=== PATIENT | female | born 1975 | race Caucasian/White ===

== ENCOUNTER 2016-12-04 19:02 | Emergency (ER) | payer MEDICAID ==
[~2016-12-04 19:02] MED LIST: BEN20 PO; BENADRYL ALLERG25 M1 PO; BENTYL10 MG PO; COLACE100 MG PO; DIPHENHYDRAMINE50 MG PO; ELAVIL25 MG PO; FLA250 PO; HYDROCODONE/ACE1 TA6 PO; LOMOTIL1 TAB PO; METP PO; MOTRIN800 MG PO; NORCO1 TA1 PO; NORCO1 TA2 PO; OMEPRAZOLE40 M1 PO; PAXIL10 MG PO; PROAIR HFA0.09 MG/A1 IH; PROMETHAZINE HY25 M1 PO; PROMETHAZINE12.5 M4 PO; PROVENTIL0.09 MG/A1 INH; SINGULAIR4 MG PO; TRAMADOL HCL50 MG PO; ULTRAM50 MG PO; URIBEL1 CAP PO; ZOFRAN8 MG PO
[2016-12-04 22:05] VITALS: BP 137/82
== END 2016-12-04 22:05 | disposition home or self-care (01) ==
LOC: ED 19:02
DX: M54.2 Cervicalgia (principal); M54.6 Pain in thoracic spine; F41.9 Anxiety disorder, unspecified; F99 Mental disorder, not otherwise specified; J45.909 Unspecified asthma, uncomplicated; Z88.0 Allergy status to penicillin; Z88.8 Allergy status to other drugs, medicaments and biological substances
CPT/HCPCS: J1170; Q0162

== ENCOUNTER 2017-03-19 21:09 | Emergency (ER) | payer MEDICAID ==
[2017-03-20 00:19] LABS: CALCIUM 8.9 mg/dL (8.5-10.1); CARBON DIOXIDE 28.1 mmol/L (21-32); CHLORIDE SERUM 102 mmol/L (98-107); CREATININE SERUM 0.7 mg/dL (0.6-1.0); GFR1 > 60 mL/min; GLUCOSE SERUM 99 mg/dL (74-106); POTASSIUM SERUM 3.4 mmol/L (3.5-5.1); SODIUM SERUM 134 mmol/L (136-145)
[2017-03-20 00:24] LABS: ALBUMIN 3.7 g/dL (3.4-5.0); ALKALINE PHOSPHATASE 73 U/L (46-116); ALT/SGPT 23 U/L (14-59); AST/SGOT 18 U/L (15-37); BILIRUBIN TOTAL 0.3 mg/dL (0.20-1.00); LIPASE 86 IU/L (73-393)
[2017-03-20 00:27] LABS: BASOPHIL % 0.3 % (0-2); PLATELET COUNT 341 x10^3mcL (130-400); RED CELL DISTRIBUTION WIDTH 13.9 % (11.5-14.5)
[2017-03-20 00:30] LABS: TOTAL PROTEIN, SERUM 8.4 g/dL (6.4-8.2)
[2017-03-20 01:39] VITALS: BP 90/61
== END 2017-03-20 01:39 | disposition home or self-care (01) ==
LOC: ED 21:09
PROVIDERS: Emergency Medicine
DX: R11.2 Nausea with vomiting, unspecified (principal); R19.7 Diarrhea, unspecified; J45.909 Unspecified asthma, uncomplicated; Z90.49 Acquired absence of other specified parts of digestive tract; Z88.0 Allergy status to penicillin
CPT/HCPCS: J2270; J2405; J7030

== ENCOUNTER 2017-06-05 23:33 | Emergency (ER) | payer MEDICAID ==
[2017-06-06 01:07] LABS: CALCIUM 8.7 mg/dL (8.5-10.1); CARBON DIOXIDE 28.4 mmol/L (21-32); CHLORIDE SERUM 103 mmol/L (98-107); CREATININE SERUM 0.7 mg/dL (0.6-1.0); GFR1 > 60 mL/min; GLUCOSE SERUM 105 mg/dL (74-106); POTASSIUM SERUM 3.5 mmol/L (3.5-5.1); SODIUM SERUM 138 mmol/L (136-145)
[2017-06-06 01:12] LABS: UA SPECIFIC GRAVITY 1.025 (1.005-1.035); microscopic required? YES; urine erythrocyte 3+ (NEGATIVE)
[2017-06-06 01:12] LABS: ALBUMIN 3.5 g/dL (3.4-5.0); ALKALINE PHOSPHATASE 85 U/L (46-116); ALT/SGPT 23 U/L (14-59); AST/SGOT 13 U/L (15-37); BILIRUBIN TOTAL 0.2 mg/dL (0.20-1.00); TOTAL PROTEIN, SERUM 8.1 g/dL (6.4-8.2)
[2017-06-06 01:13] LABS: BASOPHIL % 0.2 % (0-2); PLATELET COUNT 319 x10^3mcL (130-400); RED CELL DISTRIBUTION WIDTH 14.3 % (11.5-14.5)
[2017-06-06 03:38] VITALS: BP 114/75
== END 2017-06-06 03:38 | disposition home or self-care (01) ==
LOC: ED 23:33
PROVIDERS: Emergency Medicine
DX: O03.9 Complete or unspecified spontaneous abortion without complication (principal); N94.6 Dysmenorrhea, unspecified; Z88.0 Allergy status to penicillin; Z88.8 Allergy status to other drugs, medicaments and biological substances
CPT/HCPCS: J1885; J2270; J2405

== ENCOUNTER 2017-08-11 22:27 | Inpatient (IN) | payer MEDICAID ==
[~2017-08-11] VITALS: Ht 154.9 cm; Wt 79.5 kg
[2017-08-11 22:48] VITALS: Ht 154.9 cm; Wt 79.5 kg
[2017-08-11 23:55] LABS: BASOPHIL % 0.2 % (0-2); PLATELET COUNT 329 x10^3mcL (130-400); RED CELL DISTRIBUTION WIDTH 13.8 % (11.5-14.5)
[2017-08-12] VITALS (8 sets, daily range): BP systolic 98–144; BP diastolic 59–82
[2017-08-12 00:04] LABS: CALCIUM 8.4 mg/dL (8.5-10.1); CARBON DIOXIDE 30.1 mmol/L (21-32); CHLORIDE SERUM 102 mmol/L (98-107); CREATININE SERUM 0.6 mg/dL (0.6-1.0); GFR1 > 60 mL/min; GLUCOSE SERUM 115 mg/dL (74-106); POTASSIUM SERUM 3.8 mmol/L (3.5-5.1); SODIUM SERUM 139 mmol/L (136-145)
[2017-08-12 00:07] LABS: ALBUMIN 3.6 g/dL (3.4-5.0); ALKALINE PHOSPHATASE 88 U/L (46-116); ALT/SGPT 23 U/L (14-59); AST/SGOT 16 U/L (15-37); BILIRUBIN TOTAL 0.1 mg/dL (0.20-1.00); LIPASE 89 IU/L (73-393); TOTAL PROTEIN, SERUM 7.9 g/dL (6.4-8.2)
[2017-08-12] MEDS ORDERED: PROAIR HFA8.5 GM IH (02:33)
[2017-08-12] MEDS ORDERED: BENTYL20 MG PO (02:34)
[2017-08-12] MEDS ORDERED: OMEPRAZOLE40 M1 PO (02:34)
[2017-08-12] MEDS ORDERED: ZOFRAN8 MG PO (02:34)
[2017-08-12] MEDS ORDERED: BENADRYL ALLERG25 M1 PO (02:35)
[2017-08-12] MEDS ORDERED: ULTRAM50 MG PO (02:35)
[2017-08-12 03:48] LABS: RED BLOOD CELLS 3.77 M/mm3 (4.10-5.10)
[2017-08-12 04:11] LABS: FREE T4 0.93 ng/dL (0.76-1.46); FREE THYROXINE INDEX 2.6 ug/dL (1.4-4.5); T4(THYROXINE) 8.1 ug/dL (4.7-13.3)
[2017-08-12 04:12] LABS: T3 TOTAL 1.13 ng/mL
[2017-08-12 04:37] LABS: TOTAL IRON BINDING CAPACITY 321 ug/dL (250-450)
[2017-08-12 04:39] LABS: CHOLESTEROL/HDL RATIO 3.3; IRON 24 ug/dL (50-170); PHOSPHOROUS 2.7 mg/dL (2.5-4.9)
[2017-08-12 14:17] LABS: urine erythrocyte NEGATIVE (NEGATIVE)
[2017-08-12 14:27] LABS: AMPHETAMINE QUAL UR NONE DETECTED (NEG <=1000)
[2017-08-12 14:44] LABS: microscopic required? YES
[2017-08-13 05:01] VITALS: BP 95/62
[2017-08-13 06:25] LABS: BASOPHIL % 0.4 % (0-2); PLATELET COUNT 271 x10^3mcL (130-400); RED CELL DISTRIBUTION WIDTH 14.1 % (11.5-14.5)
[2017-08-13 06:36] LABS: CALCIUM 7.8 mg/dL (8.5-10.1); CARBON DIOXIDE 26.7 mmol/L (21-32); CHLORIDE SERUM 106 mmol/L (98-107); CREATININE SERUM 0.9 mg/dL (0.6-1.0); GFR1 > 60 mL/min; GLUCOSE SERUM 80 mg/dL (74-106); MAGNESIUM 1.8 mg/dL (1.8-2.4); PHOSPHOROUS 3.5 mg/dL (2.5-4.9); POTASSIUM SERUM 3.4 mmol/L (3.5-5.1); SODIUM SERUM 139 mmol/L (136-145)
[2017-08-13 08:49] VITALS: BP 104/63
[2017-08-13 13:30] VITALS: BP 115/81
[2017-08-13 17:59] VITALS: BP 141/78
[2017-08-13 22:09] VITALS: BP 121/76
[2017-08-14 06:37] LABS: CALCIUM 8.6 mg/dL (8.5-10.1); CARBON DIOXIDE 31.6 mmol/L (21-32); CHLORIDE SERUM 102 mmol/L (98-107); CREATININE SERUM 0.7 mg/dL (0.6-1.0); GFR1 > 60 mL/min; GLUCOSE SERUM 85 mg/dL (74-106); SODIUM SERUM 138 mmol/L (136-145)
[2017-08-14 06:51] LABS: BASOPHIL % 0.3 % (0-2); PLATELET COUNT 314 x10^3mcL (130-400); RED CELL DISTRIBUTION WIDTH 13.5 % (11.5-14.5)
[2017-08-14 07:21] VITALS: BP 108/62
[2017-08-14] MEDS ORDERED: PHE25 PO ×2 (12:00→18:33)
[2017-08-14] MEDS ORDERED: VITC PO ×2 (12:03→18:33)
[2017-08-14] MEDS ORDERED: FERG PO ×2 (12:03→18:33)
[2017-08-14] MEDS ORDERED: NORCO1 TA2 PO (16:25)
[2017-08-14] MEDS ORDERED: METP PO ×2 (16:28→18:33)
[2017-08-14] MEDS ORDERED: SIMETHICONE80 MG CH ×2 (16:28→18:33)
[2017-08-14] MEDS ORDERED: FLA500 PO ×2 (16:30→18:33)
[2017-08-14] MEDS ORDERED: BIA500 PO ×2 (16:30→18:33)
[2017-08-14 17:31] VITALS: BP 125/78
[2017-08-14 17:54] VITALS: BP 125/78
[2017-08-14] MEDS ORDERED: PROAIR HFA8.5 GM IH (18:33)
== END 2017-08-14 19:32 | disposition home or self-care (01) | DRG 241 ==
LOC: ED 22:27 → DU 08-12 02:50 → MU 08-12 02:50 → DU 08-12 03:50 → MU 08-13 09:24
PROVIDERS: Emergency Medicine; Family Medicine; Internal Medicine Gastroenterology
PROC: 0DB98ZX Excision of Duodenum, Via Natural or Artificial Opening Endoscopic, Diagnostic (ICD-10-PCS; principal; 2017-08-14 13:30)
PROC: 0DB68ZX Excision of Stomach, Via Natural or Artificial Opening Endoscopic, Diagnostic (ICD-10-PCS; 2017-08-14 13:30)
PROC: 0DJD8ZZ Inspection of Lower Intestinal Tract, Via Natural or Artificial Opening Endoscopic (ICD-10-PCS; 2017-08-14 13:30)
DX: K25.9 Gastric ulcer, unspecified as acute or chronic, without hemorrhage or perforation (principal); F32.9 Major depressive disorder, single episode, unspecified; B96.81 Helicobacter pylori [H. pylori] as the cause of diseases classified elsewhere; K21.9 Gastro-esophageal reflux disease without esophagitis; K64.8 Other hemorrhoids; E87.6 Hypokalemia; F41.9 Anxiety disorder, unspecified; J45.909 Unspecified asthma, uncomplicated; D64.9 Anemia, unspecified; E66.9 Obesity, unspecified; Z68.33 Body mass index [BMI] 33.0-33.9, adult
CPT/HCPCS: 43235; 45378; 83880; 84439; 87046; 87046-59; 88344; 90658; 94150; J1170; J1200; J1610; J1885; J2250; J2270; J2310; J2405; J3010; J3480; J3490; J7030; J7620; Q0092; Q0163; Q0169

== ENCOUNTER 2017-10-08 20:33 | Emergency (ER) | payer MEDICAID ==
[~2017-10-08] VITALS: Ht 165.1 cm; Wt 84.4 kg
[~2017-10-08 20:33] MED LIST changes: +BENTYL20 MG PO; +BIA500 PO; +FERG PO; +FLA500 PO; +PHE25 PO; +PROAIR HFA8.5 GM IH; +SIMETHICONE80 MG CH; +VITC PO
[2017-10-08 20:43] VITALS: BP 139/74; Ht 165.1 cm; Wt 84.4 kg
[2017-10-08 21:18] LABS: microscopic required? YES; urine erythrocyte 1+ (NEGATIVE)
== END 2017-10-08 22:15 | disposition home or self-care (01) ==
LOC: ED 20:33
PROVIDERS: Emergency Medicine
DX: N39.0 Urinary tract infection, site not specified (principal); J45.909 Unspecified asthma, uncomplicated; K58.9 Irritable bowel syndrome, unspecified; Z90.49 Acquired absence of other specified parts of digestive tract; Z88.0 Allergy status to penicillin; Z88.8 Allergy status to other drugs, medicaments and biological substances
CPT/HCPCS: Q0162

== ENCOUNTER 2017-11-26 01:38 | Emergency (ER) | payer MEDICAID ==
[~2017-11-26] VITALS: Ht 154.9 cm; Wt 82.7 kg
[2017-11-26 01:55] VITALS: Ht 154.9 cm; Wt 82.7 kg
[2017-11-26 02:51] LABS: CARBON DIOXIDE 26.5 mmol/L (21-32); CHLORIDE SERUM 102 mmol/L (98-107); CREATININE SERUM 0.7 mg/dL (0.6-1.0); GFR1 > 60 mL/min; GLUCOSE SERUM 91 mg/dL (74-106); POTASSIUM SERUM 3.6 mmol/L (3.5-5.1); SODIUM SERUM 137 mmol/L (136-145)
[2017-11-26 02:52] LABS: BASOPHIL % 0.1 % (0-2); PLATELET COUNT 353 x10^3mcL (130-400); RED CELL DISTRIBUTION WIDTH 13.6 % (11.5-14.5)
[2017-11-26 02:57] LABS: ALBUMIN 3.7 g/dL (3.4-5.0); ALKALINE PHOSPHATASE 72 U/L (46-116); ALT/SGPT 15 U/L (14-59); AST/SGOT 15 U/L (15-37); BILIRUBIN TOTAL 0.17 mg/dL (0.20-1.00); TOTAL PROTEIN, SERUM 7.9 g/dL (6.4-8.2)
[2017-11-26 04:49] VITALS: BP 138/82
== END 2017-11-26 04:49 | disposition home or self-care (01) ==
LOC: ED 01:38
PROVIDERS: Emergency Medicine
DX: R21 Rash and other nonspecific skin eruption (principal); R51 Headache; R11.0 Nausea; J45.909 Unspecified asthma, uncomplicated; K58.9 Irritable bowel syndrome, unspecified; Z90.49 Acquired absence of other specified parts of digestive tract; Z88.0 Allergy status to penicillin; Z88.8 Allergy status to other drugs, medicaments and biological substances
CPT/HCPCS: 36415; Q0162

== ENCOUNTER 2018-02-06 07:04 | Emergency (ER) | payer MEDICAID ==
[~2018-02-06] VITALS: Ht 154.9 cm; Wt 82.5 kg
[2018-02-06 07:15] VITALS: Ht 154.9 cm; Wt 82.5 kg
[2018-02-06 07:43] LABS: BASOPHIL % 0.4 % (0-2); PLATELET COUNT 348 x10^3mcL (130-400); RED CELL DISTRIBUTION WIDTH 13.5 % (11.5-14.5)
[2018-02-06 08:44] LABS: CALCIUM 8.4 mg/dL (8.5-10.1); CARBON DIOXIDE 26.7 mmol/L (21-32); CHLORIDE SERUM 103 mmol/L (98-107); CREATININE SERUM 0.7 mg/dL (0.6-1.0); GFR1 > 60 mL/min; GLUCOSE SERUM 107 mg/dL (74-106); POTASSIUM SERUM 3.9 mmol/L (3.5-5.1); SODIUM SERUM 136 mmol/L (136-145)
[2018-02-06 08:49] LABS: ALKALINE PHOSPHATASE 86 U/L (46-116); ALT/SGPT 44 U/L (14-59); AST/SGOT 22 U/L (15-37); BILIRUBIN TOTAL 0.2 mg/dL (0.20-1.00); LIPASE 106 IU/L (73-393)
[2018-02-06 08:50] LABS: TOTAL PROTEIN, SERUM 8.4 g/dL (6.4-8.2)
[2018-02-06 10:41] VITALS: BP 122/66
== END 2018-02-06 10:41 | disposition home or self-care (01) ==
LOC: ED 07:04
PROVIDERS: Emergency Medicine
DX: R10.31 Right lower quadrant pain (principal); R51 Headache; R11.2 Nausea with vomiting, unspecified; R19.7 Diarrhea, unspecified; J45.909 Unspecified asthma, uncomplicated; Z88.0 Allergy status to penicillin; Z88.8 Allergy status to other drugs, medicaments and biological substances; Z90.49 Acquired absence of other specified parts of digestive tract
CPT/HCPCS: J1200; J1885; J2550; J3010; J7030

== ENCOUNTER 2018-02-12 13:58 | Emergency (ER) | payer MEDICAID ==
[~2018-02-12] VITALS: Ht 154.9 cm; Wt 107.5 kg
[2018-02-12 14:08] VITALS: Ht 154.9 cm; Wt 107.5 kg
[2018-02-12 16:14] LABS: BASOPHIL % 0.4 % (0-2); PLATELET COUNT 368 x10^3mcL (130-400); RED CELL DISTRIBUTION WIDTH 13.8 % (11.5-14.5)
[2018-02-12 16:55] LABS: CALCIUM 9.8 mg/dL (8.5-10.1); CARBON DIOXIDE 26.2 mmol/L (21-32); CHLORIDE SERUM 102 mmol/L (98-107); CREATININE SERUM 0.8 mg/dL (0.6-1.0); GFR1 > 60 mL/min; GLUCOSE SERUM 118 mg/dL (74-106); POTASSIUM SERUM 3.7 mmol/L (3.5-5.1); SODIUM SERUM 135 mmol/L (136-145)
[2018-02-12 17:00] LABS: ALBUMIN 4.3 g/dL (3.4-5.0); ALKALINE PHOSPHATASE 82 U/L (46-116); ALT/SGPT 41 U/L (14-59); AMYLASE 50 U/L (25-115); AST/SGOT 34 U/L (15-37); BILIRUBIN TOTAL 0.29 mg/dL (0.20-1.00); LIPASE 96 IU/L (73-393)
[2018-02-12 17:05] LABS: TOTAL PROTEIN, SERUM 9.2 g/dL (6.4-8.2)
[2018-02-12 19:15] VITALS: BP 132/71
== END 2018-02-12 19:15 | disposition home or self-care (01) ==
LOC: ED 13:58
PROVIDERS: Specialist
DX: R10.13 Epigastric pain (principal); R10.30 Lower abdominal pain, unspecified; R19.7 Diarrhea, unspecified; R11.2 Nausea with vomiting, unspecified; J45.909 Unspecified asthma, uncomplicated; Z88.0 Allergy status to penicillin; Z90.49 Acquired absence of other specified parts of digestive tract; Z88.8 Allergy status to other drugs, medicaments and biological substances
CPT/HCPCS: 83880; C9113; J2270; J2405; J3490; J7030

== ENCOUNTER 2018-04-16 23:27 | Emergency (ER) | payer MEDICAID ==
[~2018-04-16] VITALS: Ht 154.9 cm; Wt 83.9 kg
[2018-04-16 23:47] VITALS: Ht 154.9 cm; Wt 83.9 kg
[2018-04-17 02:29] LABS: microscopic required? YES; urine erythrocyte TRACE (NEGATIVE)
[2018-04-17 02:37] LABS: BASOPHIL % 1.4 % (0-2); PLATELET COUNT 166 x10^3mcL (130-400); RED CELL DISTRIBUTION WIDTH 12.8 % (11.5-14.5)
[2018-04-17 03:05] LABS: CALCIUM 8.6 mg/dL (8.5-10.1); CARBON DIOXIDE 27.9 mmol/L (21-32); CHLORIDE SERUM 103 mmol/L (98-107); CREATININE SERUM 0.8 mg/dL (0.6-1.0); GFR1 > 60 mL/min; GLUCOSE SERUM 100 mg/dL (74-106); POTASSIUM SERUM 4.1 mmol/L (3.5-5.1); SODIUM SERUM 137 mmol/L (136-145)
[2018-04-17 03:10] LABS: ALBUMIN 3.9 g/dL (3.4-5.0); ALKALINE PHOSPHATASE 78 U/L (46-116); ALT/SGPT 14 U/L (14-59); AST/SGOT 19 U/L (15-37); BILIRUBIN TOTAL 0.24 mg/dL (0.20-1.00)
[2018-04-17 07:05] VITALS: BP 117/71
== END 2018-04-17 07:05 | disposition home or self-care (01) ==
LOC: ED 23:27
PROVIDERS: Emergency Medicine
DX: D25.9 Leiomyoma of uterus, unspecified (principal); N83.291 Other ovarian cyst, right side; J45.909 Unspecified asthma, uncomplicated; F41.9 Anxiety disorder, unspecified; Z98.890 Other specified postprocedural states; K58.9 Irritable bowel syndrome, unspecified; Z88.0 Allergy status to penicillin; Z90.49 Acquired absence of other specified parts of digestive tract; Z88.8 Allergy status to other drugs, medicaments and biological substances
CPT/HCPCS: J1885; J2405; J3010

== ENCOUNTER 2018-06-01 10:02 | Emergency (ER) | payer MEDICAID ==
[~2018-06-01] VITALS: Ht 154.9 cm; Wt 83.5 kg
[2018-06-01 10:06] VITALS: Ht 154.9 cm; Wt 83.5 kg
[2018-06-01 11:35] LABS: BASOPHIL % 1.1 % (0-2); PLATELET COUNT 347 x10^3mcL (130-400); RED CELL DISTRIBUTION WIDTH 13.7 % (11.5-14.5)
[2018-06-01 11:38] LABS: CALCIUM 8.8 mg/dL (8.5-10.1); CARBON DIOXIDE 27.7 mmol/L (21-32); CHLORIDE SERUM 101 mmol/L (98-107); CREATININE SERUM 0.6 mg/dL (0.6-1.0); GFR1 > 60 mL/min; GLUCOSE SERUM 104 mg/dL (74-106); POTASSIUM SERUM 3.4 mmol/L (3.5-5.1); SODIUM SERUM 134 mmol/L (136-145)
[2018-06-01 11:44] LABS: ALKALINE PHOSPHATASE 78 U/L (46-116); ALT/SGPT 19 U/L (14-59); AST/SGOT 20 U/L (15-37); LIPASE 111 IU/L (73-393)
[2018-06-01 11:46] LABS: TOTAL PROTEIN, SERUM 8.7 g/dL (6.4-8.2)
[2018-06-01 13:11] VITALS: BP 118/68
== END 2018-06-01 13:11 | disposition home or self-care (01) ==
LOC: ED 10:02
PROVIDERS: Emergency Medicine
DX: K58.0 Irritable bowel syndrome with diarrhea (principal); J45.909 Unspecified asthma, uncomplicated; F41.9 Anxiety disorder, unspecified; Z88.0 Allergy status to penicillin; Z98.890 Other specified postprocedural states; Z88.8 Allergy status to other drugs, medicaments and biological substances; Z90.49 Acquired absence of other specified parts of digestive tract
CPT/HCPCS: 36415; J0500; J3010; Q0162

== ENCOUNTER 2018-06-15 19:09 | Emergency (ER) | payer MEDICAID ==
[~2018-06-15] VITALS: Ht 154.9 cm; Wt 83.0 kg
[2018-06-15 19:36] VITALS: Ht 154.9 cm; Wt 83.0 kg
[2018-06-15 20:36] LABS: BASOPHIL % 0.3 % (0-2); PLATELET COUNT 335 x10^3mcL (130-400); RED CELL DISTRIBUTION WIDTH 13.3 % (11.5-14.5)
[2018-06-15 20:46] LABS: CALCIUM 9.2 mg/dL (8.5-10.1); CARBON DIOXIDE 28.8 mmol/L (21-32); CHLORIDE SERUM 102 mmol/L (98-107); CREATININE SERUM 0.7 mg/dL (0.6-1.0); GFR1 > 60 mL/min; GLUCOSE SERUM 104 mg/dL (74-106); POTASSIUM SERUM 3.6 mmol/L (3.5-5.1); SODIUM SERUM 140 mmol/L (136-145)
[2018-06-15 20:58] LABS: ALBUMIN 4.1 g/dL (3.4-5.0); ALKALINE PHOSPHATASE 67 U/L (46-116); ALT/SGPT 41 U/L (14-59); AST/SGOT 16 U/L (15-37); BILIRUBIN TOTAL 0.3 mg/dL (0.20-1.00); LIPASE 97 IU/L (73-393)
[2018-06-15 20:59] LABS: TOTAL PROTEIN, SERUM 8.9 g/dL (6.4-8.2)
[2018-06-15 21:02] LABS: microscopic required? YES; urine erythrocyte 3+ (NEGATIVE)
[2018-06-15 23:00] VITALS: BP 110/61
== END 2018-06-15 23:00 | disposition home or self-care (01) ==
LOC: ED 19:09
PROVIDERS: Emergency Medicine
DX: K58.9 Irritable bowel syndrome, unspecified (principal); N39.0 Urinary tract infection, site not specified; F41.9 Anxiety disorder, unspecified; J45.909 Unspecified asthma, uncomplicated; Z88.8 Allergy status to other drugs, medicaments and biological substances; Z88.0 Allergy status to penicillin; Z98.890 Other specified postprocedural states; Z90.49 Acquired absence of other specified parts of digestive tract
CPT/HCPCS: J1885; J2405; J7030

== ENCOUNTER 2018-10-19 22:37 | Emergency (ER) | payer MEDICAID ==
[~2018-10-19] VITALS: Ht 154.9 cm; Wt 81.2 kg
[2018-10-19 22:42] VITALS: Ht 154.9 cm; Wt 81.2 kg
[2018-10-19 23:33] LABS: BASOPHIL % 0.5 % (0-2); PLATELET COUNT 345 x10^3mcL (130-400); RED CELL DISTRIBUTION WIDTH 13.6 % (11.5-14.5)
[2018-10-19 23:47] LABS: CALCIUM 8.9 mg/dL (8.5-10.1); CARBON DIOXIDE 29.8 mmol/L (21-32); CHLORIDE SERUM 100 mmol/L (98-107); CREATININE SERUM 0.9 mg/dL (0.6-1.0); GFR1 > 60 mL/min; GLUCOSE SERUM 102 mg/dL (74-106); POTASSIUM SERUM 3.1 mmol/L (3.5-5.1); SODIUM SERUM 138 mmol/L (136-145)
[2018-10-19 23:51] LABS: ALKALINE PHOSPHATASE 71 U/L (46-116); ALT/SGPT 45 U/L (14-59); AST/SGOT 30 U/L (15-37); BILIRUBIN TOTAL 0.32 mg/dL (0.20-1.00); LIPASE 71 IU/L (73-393)
[2018-10-19 23:54] LABS: TOTAL PROTEIN, SERUM 8.4 g/dL (6.4-8.2)
[2018-10-20 02:05] VITALS: BP 98/68
== END 2018-10-20 02:05 | disposition home or self-care (01) ==
LOC: ED 22:37
PROVIDERS: Emergency Medicine
DX: K58.0 Irritable bowel syndrome with diarrhea (principal); J45.909 Unspecified asthma, uncomplicated; F41.9 Anxiety disorder, unspecified; Z88.0 Allergy status to penicillin; Z88.8 Allergy status to other drugs, medicaments and biological substances; Z90.49 Acquired absence of other specified parts of digestive tract; Z98.890 Other specified postprocedural states
CPT/HCPCS: J1885; J2270; J2405; J7030

== ENCOUNTER 2019-01-07 08:35 | Emergency (ER) | payer MEDICAID ==
[~2019-01-07] VITALS: Ht 154.9 cm; Wt 81.6 kg
[2019-01-07 08:45] VITALS: Ht 154.9 cm; Wt 81.6 kg
[2019-01-07 09:42] LABS: BASOPHIL % 0.3 % (0-2); PLATELET COUNT 365 x10^3mcL (130-400); RED CELL DISTRIBUTION WIDTH 14.2 % (11.5-14.5)
[2019-01-07 09:53] LABS: CALCIUM 9.5 mg/dL (8.5-10.1); CARBON DIOXIDE 23.8 mmol/L (21-32); CHLORIDE SERUM 107 mmol/L (98-107); CREATININE SERUM 0.7 mg/dL (0.6-1.0); GFR1 > 60 mL/min; GLUCOSE SERUM 95 mg/dL (74-106); POTASSIUM SERUM 3.7 mmol/L (3.5-5.1); SODIUM SERUM 143 mmol/L (136-145)
[2019-01-07 09:58] LABS: ALBUMIN 3.9 g/dL (3.4-5.0); ALKALINE PHOSPHATASE 72 U/L (46-116); ALT/SGPT 23 U/L (14-59); AST/SGOT 9 U/L (15-37); BILIRUBIN TOTAL 0.17 mg/dL (0.20-1.00); TOTAL PROTEIN, SERUM 7.9 g/dL (6.4-8.2)
[2019-01-07 11:23] VITALS: BP 109/42
== END 2019-01-07 11:23 | disposition home or self-care (01) ==
LOC: ED 08:35
PROVIDERS: Emergency Medicine
DX: L29.9 Pruritus, unspecified (principal); D64.9 Anemia, unspecified; G47.00 Insomnia, unspecified; R51 Headache; J45.909 Unspecified asthma, uncomplicated; F41.9 Anxiety disorder, unspecified; Z90.49 Acquired absence of other specified parts of digestive tract; Z88.0 Allergy status to penicillin; Z88.8 Allergy status to other drugs, medicaments and biological substances
CPT/HCPCS: 36415; J7512

== ENCOUNTER 2019-01-15 22:26 | Emergency (ER) | payer MEDICAID ==
[~2019-01-15] VITALS: Ht 154.9 cm; Wt 79.4 kg
[2019-01-15 22:53] VITALS: Ht 154.9 cm; Wt 79.4 kg
[2019-01-16 00:50] VITALS: BP 125/73
== END 2019-01-16 00:50 | disposition home or self-care (01) ==
LOC: ED 22:26
DX: J06.9 Acute upper respiratory infection, unspecified (principal); J45.909 Unspecified asthma, uncomplicated; F41.9 Anxiety disorder, unspecified; Z88.0 Allergy status to penicillin; Z88.8 Allergy status to other drugs, medicaments and biological substances; Z90.49 Acquired absence of other specified parts of digestive tract; Z98.890 Other specified postprocedural states; Z90.710 Acquired absence of both cervix and uterus

== ENCOUNTER 2019-02-23 03:58 | Inpatient (IN) | payer MEDICAID ==
[~2019-02-23] VITALS: Ht 154.9 cm; Wt 80.1 kg
[2019-02-23 04:04] VITALS: Ht 154.9 cm; Wt 80.1 kg
--- NOTE | 2019-02-23 04:17 | NUR ---
PATIENT COMES TO ED C/O ABD CRAMPING N/V/D X1 MONTH WORSENING THE PAST 2 WEEKS. 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 PATIENT STATES THAT SHE HAS LIQUID STOOL AFTER DRINKING LIQUIDS AND MUCOUS LIKE STOOL AFTER EATING. PATIENT IS NAUSEATED AT THIS TIME. STATES SHE IS ONLY TRYING TO EAT ONCE A DAY TO CONTROL THE DIARREAH. PAIN IS 9/10 TO GENERALIZED ABD. CONNECTED TO MONITOR. AWAITING MSE.
[2019-02-23 04:44] LABS: UA SPECIFIC GRAVITY 1.025 (1.005-1.035); microscopic required? YES; urine erythrocyte NEGATIVE (NEGATIVE)
[2019-02-23 04:46] LABS: BASOPHIL % 0.7 % (0-2); PLATELET COUNT 290 x10^3mcL (130-400); RED CELL DISTRIBUTION WIDTH 14.4 % (11.5-14.5)
[2019-02-23 04:51] LABS: CALCIUM 8.8 mg/dL (8.5-10.1); CARBON DIOXIDE 26.3 mmol/L (21-32); CHLORIDE SERUM 105 mmol/L (98-107); GFR1 > 60 mL/min; GLUCOSE SERUM 102 mg/dL (74-106); POTASSIUM SERUM 3.6 mmol/L (3.5-5.1); SODIUM SERUM 141 mmol/L (136-145)
[2019-02-23 04:56] LABS: ALBUMIN 3.9 g/dL (3.4-5.0); ALKALINE PHOSPHATASE 88 U/L (46-116); ALT/SGPT 24 U/L (14-59); AST/SGOT 13 U/L (15-37); BILIRUBIN TOTAL 0.17 mg/dL (0.20-1.00); LIPASE 88 IU/L (73-393); TOTAL PROTEIN, SERUM 8.2 g/dL (6.4-8.2)
--- NOTE | 2019-02-23 05:13 | NUR ---
PATIENT NOTED TO BE SHIVERING. STATED SHE IS NAUSEATED. PROVIDED WARM BLANKET AND EMESIS BAG. DR REGIS ALVARADO.
--- NOTE | 2019-02-23 05:13 | NUR ---
DR STACY AT BEDSIDE FOR MSE.
--- NOTE | 2019-02-23 06:20 | NUR ---
PATIENT STATES SHE STILL HAS ABD PAIN 8/10 TO GENERALIZED ABD WITH PERSISTANT NAUSEA. DR REGIS ALVARADO.
--- NOTE | 2019-02-23 07:06 | NUR ---
PATIENT ENDORSED TO JOSEPH LAMAR.
[2019-02-23] MEDS ORDERED: BENADRYL ALLERG25 M1 PO (07:15)
--- NOTE | 2019-02-23 07:18 | NUR ---
HOME MEDS VERIFIED WITH PT. MED REC DONE.
--- NOTE | 2019-02-23 07:19 | NUR ---
PT SITTING IN BED, AWAKE, ALERT, NO CP, NO SOB, IV NS BOLUS INFUSED. NO SIGNS OF DISTRESS NOTED, NO VOMITING, PT STATES STILL CONT TO HAVE SQUEEZING PAIN TO MID ABD OFF AND ON 03/05.
[2019-02-23 08:19] LABS: CHOLESTEROL/HDL RATIO 5.9
[2019-02-23 08:27] LABS: FREE T4 0.88 ng/dL (0.76-1.46); FREE THYROXINE INDEX 2.4 ug/dL (1.4-4.5); T4(THYROXINE) 7.6 ug/dL (4.7-13.3)
--- NOTE | 2019-02-23 08:32 | NUR ---
PT ARRIVED FROM ED VIA WHEELCHAIR ACCOMPANIED BY NURSE. PT LOOKS TO BE IN NO ACUTE DISTRESS AT THIS TIME AND IS COMPLAINING OF 8/10 PAIN THE MID UPPER ABD AREA AND IS COMPLAINING OF NAUSEA. PROVIDED PT WITH EMESIS BAG, PT IS AOX4 AND MED SURG PT. LUNG SOUNDS CLEAR BILATERALLY ON ROOM AIR, PT DENIES ANY SOB OR CHEST PAIN AT THIS TIME. PULSES PALPABLE WITH NO EDEMA PRESENT. CURRENT VITALS ARE BP: 110/80, MAP: 89, HR: 79, RR: 16 AND UNLABORED, TEMP: 98.2, O2 97% ON ROOM AIR. ORIENTED PT TO UNIT AND ROOM, CALL LIGHT WITHIN REACH, WILL CONTINUE TO MONITOR.
[2019-02-23 08:33] VITALS: BP 110/80
[2019-02-23 08:49] LABS: T3 TOTAL 1.1 ng/mL
--- NOTE | 2019-02-23 10:45 | NUR ---
PT STATES MINIMAL RELIEF FROM PAIN WITH MORPHINE. MORPHINE DISCONTINUED. INFORMED DR. CAPELLAN AND STUMMEL SELECTOR ALCIRA OF MEDICATION DISCONTINUE AND THAT THE MORPHINE IS NOT CONTROLLING PT'S PAIN.
[2019-02-23 16:06] VITALS: BP 98/64
--- NOTE | 2019-02-23 17:00 | NUR ---
PT COMPLAINING OF ABD PAIN AND NAUSEA. PT STATED THAT THREW UP SMALL AMOUNTS OF LIQUID AND CONTINUES TO FEEL NAUSEATED. WILL MEDICATE ACCORDING TO EMAR.
--- NOTE | 2019-02-23 18:15 | NUR ---
PT STATES MINIMAL RELIEF FROM NAUSEA BUT DOES HAVE AN APPETITE AND IS EATING SOME DINNER. IV SITE PATENT WITH NO SIGNS OF ERYTHEMA OR SWELLING WITH IV FLUIDS INFUSING. RESPIRATIONS EVEN AND UNLABORED ON ROOM AIR. PT DENIES ANY FURTHER EPISODES OF DIARRHEA BUT STATES HAVING MULTIPLE EPISODES OF FLATULENCE. FAMILY MEMBER AT BEDSIDE. BED IN LOWEST POSITION, CALL LIGHT WITHIN REACH. WILL ENDORSE TO ONCOMING SHIFT.
--- NOTE | 2019-02-23 19:40 | NUR ---
RECIEVED PT IN NO ACUTE DISTRESS. MED SURG. AOX4. BOWEL SOUNDS ACTIVE X 4. C/O INTERMITTENT UPPER ABD DISCOMFORT. DENIES N/V. TOLERATING DIET. IV TO LFA, PATENT. BED IN LOWEST POSITION, 2 SIDE RAILS UP, CALL LIGHT IN REACH. INSTRUCTED TO CALL FOR ASSISTANCE.
[2019-02-23 20:32] VITALS: BP 108/64
--- NOTE | 2019-02-24 00:12 | NUR ---
ENDORSED CARE TO JOSE RUIZ.
--- NOTE | 2019-02-24 00:44 | NUR ---
PATIENT COMPLAINED OF ACHING/THROBBING HEADACHE, PS 9/10. MEDICATED WITH TYLENOL 325 MG PO ORDERED. WILL CONTINUE TO MONITOR.
--- NOTE | 2019-02-24 01:35 | NUR ---
PATIENT RECEIVED FROM FARIDA RUIZ FOR CONTINUATION OF CARE. RESTING IN BED. RESPIRATION EVEN AND UNLABORED, ON ROOM AIR. COMPLAINED OF THROBBING/ACHING HEADACHE, PS 10/10. MEDICATED WITH TYLENOL 325 MG PO ORDERED. VERBALIZED SHE HAD FIVE BM ALREADY. WILL CONTINUE TO MONITOR.
[2019-02-24 06:01] VITALS: BP 105/67
--- NOTE | 2019-02-24 06:24 | NUR ---
PATIENT RESTING IN BED. RESPIRATION EVEN AND UNLABORED, ON ROOM AIR. STATED "MY HEADACHE IS BETTER." IV SITE NO SIGN OF INFILTRATION. ASSISTED WITH NEEDS. SAFETY OBSERVED. PLACED BED IN THE LOWEST POSITION. PLACED CALL LIGHT WITHIN REACH AT ALLL TIMES.
[2019-02-24 06:46] LABS: BASOPHIL % 0.3 % (0-2); PLATELET COUNT 343 x10^3mcL (130-400); RED CELL DISTRIBUTION WIDTH 14.4 % (11.5-14.5)
[2019-02-24 06:55] LABS: CALCIUM 8.5 mg/dL (8.5-10.1); CARBON DIOXIDE 27.2 mmol/L (21-32); CHLORIDE SERUM 111 mmol/L (98-107); CREATININE SERUM 0.7 mg/dL (0.6-1.0); GFR1 > 60 mL/min; GLUCOSE SERUM 83 mg/dL (74-106); SODIUM SERUM 144 mmol/L (136-145)
--- NOTE | 2019-02-24 07:15 | NUR ---
RECEIVED PT FROM FURNACE CARETAKER NURSE. PT IN BED SLEEPING, AROUSABLE, RESP E/U ON RA. NO SIGNS OF ACUTE DISTRESS NOTED AT THIS TIME. IV TO LFA W/ NO SIGNS OF INFILTRATION, IVF INFUSING WELL. BED IN LOWEST POSITION AND CALL LIGHT WITHIN REACH. WILL CONTINUE TO MONITOR.
[2019-02-24 08:44] VITALS: BP 104/65
--- NOTE | 2019-02-24 11:30 | NUR ---
PT RESTING IN BED, AOX4, RESP E/U ON RA. REPORTED EPISODE OF VOMITING SHORTLY AFTER RECEIVING MORNING PAIN MEDS. CURRENTLY FEELING NAUSE. MEDICATED ORDERED PER EMAR. DENIES ABD PAIN. COMFORT MEASURES IMPLEMENTED. WILL CONTINUE TO MONITOR.
[2019-02-24 13:39] VITALS: BP 104/65
--- NOTE | 2019-02-24 14:44 | NUR ---
PT DISCHARGED. REVIEWED VISIT SUMMARY, EDUCATIONAL PACKET AND FOLLOW UP INSTRUCTIONS W/ PT. PT AOX4, RESP E/U, VS STABLE, DENIES PAIN. IV TO LFA REMOVED, CATH INTACT, GAUZE DRESSING APPLIED. PT AMBULATORY TO DISCHARGE OFFICE, ESCORTED BY JOSHUA NEELY W/ NO ACUTE INCIDENCE.
== END 2019-02-24 14:44 | disposition home or self-care (01) | DRG 254 ==
LOC: ED 03:58 → MU 07:26
PROVIDERS: Emergency Medicine; ADMIT Internal Medicine
DX: K58.0 Irritable bowel syndrome with diarrhea (principal); B19.20 Unspecified viral hepatitis C without hepatic coma; D64.9 Anemia, unspecified; K21.9 Gastro-esophageal reflux disease without esophagitis; J45.909 Unspecified asthma, uncomplicated; F41.9 Anxiety disorder, unspecified; E66.9 Obesity, unspecified; Z68.33 Body mass index [BMI] 33.0-33.9, adult
CPT/HCPCS: 84439; 87338; G0378; J2270; J2405; J7030; Q0163

== ENCOUNTER 2019-06-04 02:28 | Emergency (ER) | payer MEDICAID ==
[~2019-06-04] VITALS: Ht 154.9 cm; Wt 78.0 kg
[2019-06-04 02:38] VITALS: Ht 154.9 cm; Wt 78.0 kg
[2019-06-04 05:15] VITALS: BP 112/62
== END 2019-06-04 05:15 | disposition home or self-care (01) ==
LOC: ED 02:28
DX: K08.89 Other specified disorders of teeth and supporting structures (principal); J45.909 Unspecified asthma, uncomplicated; F41.9 Anxiety disorder, unspecified; Z90.710 Acquired absence of both cervix and uterus; Z88.0 Allergy status to penicillin; Z88.8 Allergy status to other drugs, medicaments and biological substances; Z90.49 Acquired absence of other specified parts of digestive tract
CPT/HCPCS: J1885; Q0162

== ENCOUNTER 2019-06-10 21:59 | Emergency (ER) | payer MEDICAID ==
[~2019-06-10] VITALS: Ht 154.9 cm; Wt 78.9 kg
[2019-06-10 22:09] VITALS: Ht 154.9 cm; Wt 78.9 kg
[2019-06-10 22:45] LABS: BASOPHIL % 0.3 % (0-2); PLATELET COUNT 378 x10^3mcL (130-400); RED CELL DISTRIBUTION WIDTH 13.1 % (11.5-14.5)
[2019-06-10 22:57] LABS: CALCIUM 8.7 mg/dL (8.5-10.1); CARBON DIOXIDE 33.2 mmol/L (21-32); CHLORIDE SERUM 96 mmol/L (98-107); CREATININE SERUM 0.9 mg/dL (0.6-1.0); GFR1 > 60 mL/min; GLUCOSE SERUM 125 mg/dL (74-106); POTASSIUM SERUM 3.4 mmol/L (3.5-5.1); SODIUM SERUM 136 mmol/L (136-145)
[2019-06-10 23:01] LABS: ALBUMIN 4.3 g/dL (3.4-5.0); ALKALINE PHOSPHATASE 90 U/L (46-116); ALT/SGPT 47 U/L (14-59); AST/SGOT 29 U/L (15-37); BILIRUBIN TOTAL 0.29 mg/dL (0.20-1.00); LIPASE 67 IU/L (73-393)
[2019-06-10 23:02] LABS: TOTAL PROTEIN, SERUM 8.9 g/dL (6.4-8.2)
[2019-06-11 01:40] VITALS: BP 100/61
== END 2019-06-11 01:40 | disposition home or self-care (01) ==
LOC: ED 21:59
PROVIDERS: Emergency Medicine
DX: K58.0 Irritable bowel syndrome with diarrhea (principal); J45.909 Unspecified asthma, uncomplicated; Z88.8 Allergy status to other drugs, medicaments and biological substances; Z88.0 Allergy status to penicillin; Z90.49 Acquired absence of other specified parts of digestive tract; Z90.710 Acquired absence of both cervix and uterus
CPT/HCPCS: J0500; J2270; J2405; J3490

== ENCOUNTER 2019-09-16 03:29 | Emergency (ER) | payer MEDICAID ==
[~2019-09-16] VITALS: Ht 154.9 cm; Wt 84.4 kg
[2019-09-16 03:31] VITALS: Ht 154.9 cm; Wt 84.4 kg
[2019-09-16 05:47] LABS: BASOPHIL % 0.5 % (0-2); PLATELET COUNT 312 x10^3mcL (130-400); RED CELL DISTRIBUTION WIDTH 13.3 % (11.5-14.5)
[2019-09-16 05:48] LABS: ALBUMIN 3.9 g/dL (3.4-5.0); ALKALINE PHOSPHATASE 68 U/L (46-116); ALT/SGPT 23 U/L (14-59); AST/SGOT 12 U/L (15-37); BILIRUBIN TOTAL 0.2 mg/dL (0.20-1.00); CALCIUM 8.2 mg/dL (8.5-10.1); CARBON DIOXIDE 27.6 mmol/L (21-32); CHLORIDE SERUM 102 mmol/L (98-107); CREATININE SERUM 0.7 mg/dL (0.6-1.0); GFR1 > 60 mL/min; GLUCOSE SERUM 104 mg/dL (74-106); LIPASE 79 IU/L (73-393); POTASSIUM SERUM 3.9 mmol/L (3.5-5.1); SODIUM SERUM 137 mmol/L (136-145); TOTAL PROTEIN, SERUM 7.8 g/dL (6.4-8.2)
[2019-09-16 07:16] VITALS: BP 130/75
== END 2019-09-16 07:16 | disposition home or self-care (01) ==
LOC: ED 03:29
PROVIDERS: Emergency Medicine
DX: K40.90 Unilateral inguinal hernia, without obstruction or gangrene, not specified as recurrent (principal); S46.911A Strain of unspecified muscle, fascia and tendon at shoulder and upper arm level, right arm, initial encounter; Z88.0 Allergy status to penicillin; Z88.6 Allergy status to analgesic agent; J45.909 Unspecified asthma, uncomplicated; X58.XXXA Exposure to other specified factors, initial encounter; Y93.89 Activity, other specified; Y92.89 Other specified places as the place of occurrence of the external cause; Y99.8 Other external cause status
CPT/HCPCS: 36415; J1885; Q0092

== ENCOUNTER 2019-11-26 18:09 | Emergency (ER) | payer MEDICAID ==
[~2019-11-26] VITALS: Ht 154.9 cm; Wt 81.6 kg
[2019-11-26 18:12] VITALS: Ht 154.9 cm; Wt 81.6 kg
[2019-11-26 20:23] LABS: UA SPECIFIC GRAVITY >=1.030 (1.005-1.035); microscopic required? YES; urine erythrocyte NEGATIVE (NEGATIVE)
[2019-11-26 20:31] LABS: BASOPHIL % 0.4 % (0-2); PLATELET COUNT 480 x10^3mcL (130-400); RED CELL DISTRIBUTION WIDTH 13.4 % (11.5-14.5)
[2019-11-26 20:42] LABS: ALBUMIN 4.6 g/dL (3.4-5.0); BILIRUBIN TOTAL 0.5 mg/dL (0.20-1.00); CALCIUM 9.8 mg/dL (8.5-10.1); CARBON DIOXIDE 30.8 mmol/L (21-32); CREATININE SERUM 1.1 mg/dL (0.6-1.0)
[2019-11-26 20:59] LABS: POTASSIUM SERUM 2.9 mmol/L (3.5-5.1); TOTAL PROTEIN, SERUM 8.9 g/dL (6.4-8.2)
[2019-11-26 23:03] VITALS: BP 115/77
== END 2019-11-26 23:03 | disposition home or self-care (01) ==
LOC: ED 18:09
PROVIDERS: Emergency Medicine
DX: K52.9 Noninfective gastroenteritis and colitis, unspecified (principal); K21.9 Gastro-esophageal reflux disease without esophagitis; Z98.890 Other specified postprocedural states; Z90.49 Acquired absence of other specified parts of digestive tract
CPT/HCPCS: C9113; J2270; J2405; J3490; J7030

== ENCOUNTER 2019-11-30 15:16 | Emergency (ER) | payer MEDICAID ==
[~2019-11-30] VITALS: Ht 154.9 cm; Wt 83.5 kg
[2019-11-30 15:20] VITALS: Ht 154.9 cm; Wt 83.5 kg
[2019-11-30 15:55] LABS: BASOPHIL % 0.4 % (0-2); PLATELET COUNT 383 x10^3mcL (130-400); RED CELL DISTRIBUTION WIDTH 13.1 % (11.5-14.5)
[2019-11-30 15:56] LABS: CALCIUM 9.8 mg/dL (8.5-10.1); CARBON DIOXIDE 31.3 mmol/L (21-32); CHLORIDE SERUM 99 mmol/L (98-107); CREATININE SERUM 0.8 mg/dL (0.6-1.0); GFR1 > 60 mL/min; GLUCOSE SERUM 129 mg/dL (74-106); POTASSIUM SERUM 3.4 mmol/L (3.5-5.1); SODIUM SERUM 136 mmol/L (136-145)
[2019-11-30 16:02] LABS: ALBUMIN 4.3 g/dL (3.4-5.0); ALKALINE PHOSPHATASE 76 U/L (46-116); ALT/SGPT 39 U/L (14-59); AST/SGOT 19 U/L (15-37); BILIRUBIN TOTAL 0.31 mg/dL (0.20-1.00); LIPASE 99 IU/L (73-393)
[2019-11-30 16:03] LABS: TOTAL PROTEIN, SERUM 8.3 g/dL (6.4-8.2)
[2019-11-30 18:03] VITALS: BP 110/76
== END 2019-11-30 18:03 | disposition home or self-care (01) ==
LOC: ED 15:16
PROVIDERS: Emergency Medicine
DX: K58.9 Irritable bowel syndrome, unspecified (principal); J45.909 Unspecified asthma, uncomplicated; Z90.49 Acquired absence of other specified parts of digestive tract; Z88.0 Allergy status to penicillin; Z88.8 Allergy status to other drugs, medicaments and biological substances
CPT/HCPCS: J2270; J2405; J3010; J7030

== ENCOUNTER 2020-01-24 13:19 | Emergency (ER) | payer MEDICAID ==
[~2020-01-24] VITALS: Ht 154.9 cm; Wt 84.8 kg
[2020-01-24 13:57] VITALS: Ht 154.9 cm; Wt 84.8 kg
[2020-01-24 15:02] LABS: BASOPHIL % 0.3 % (0-2); PLATELET COUNT 383 x10^3mcL (130-400); RED CELL DISTRIBUTION WIDTH 13.1 % (11.5-14.5)
[2020-01-24 15:12] LABS: CALCIUM 8.7 mg/dL (8.5-10.1); CHLORIDE SERUM 99 mmol/L (98-107); CREATININE SERUM 0.8 mg/dL (0.6-1.0); GFR1 > 60 mL/min; GLUCOSE SERUM 126 mg/dL (74-106); POTASSIUM SERUM 3.3 mmol/L (3.5-5.1); SODIUM SERUM 136 mmol/L (136-145)
[2020-01-24 15:17] LABS: ALKALINE PHOSPHATASE 83 U/L (46-116); ALT/SGPT 38 U/L (14-59); AST/SGOT 30 U/L (15-37); BILIRUBIN TOTAL 0.4 mg/dL (0.20-1.00)
[2020-01-24 15:19] LABS: TOTAL PROTEIN, SERUM 8.5 g/dL (6.4-8.2)
[2020-01-24 17:50] VITALS: BP 130/83
== END 2020-01-24 17:50 | disposition home or self-care (01) ==
LOC: ED 13:19
PROVIDERS: Emergency Medicine
DX: R10.811 Right upper quadrant abdominal tenderness (principal); R10.812 Left upper quadrant abdominal tenderness; R10.813 Right lower quadrant abdominal tenderness; R10.814 Left lower quadrant abdominal tenderness; R11.2 Nausea with vomiting, unspecified; R68.83 Chills (without fever); J45.909 Unspecified asthma, uncomplicated; Z90.49 Acquired absence of other specified parts of digestive tract; Z90.710 Acquired absence of both cervix and uterus; Z88.0 Allergy status to penicillin
CPT/HCPCS: J1630; J2060

== ENCOUNTER 2020-04-12 16:35 | Emergency (ER) | payer MEDICAID ==
[~2020-04-12] VITALS: Ht 154.9 cm; Wt 83.0 kg
[2020-04-12 16:54] VITALS: Ht 154.9 cm; Wt 83.0 kg
[2020-04-12 18:42] VITALS: BP 170/87
== END 2020-04-12 17:47 | disposition home or self-care (01) ==
LOC: ED 16:35
DX: M54.5 Low back pain (principal); G44.209 Tension-type headache, unspecified, not intractable; R35.0 Frequency of micturition; R03.0 Elevated blood-pressure reading, without diagnosis of hypertension; J45.909 Unspecified asthma, uncomplicated; K21.9 Gastro-esophageal reflux disease without esophagitis; Z88.0 Allergy status to penicillin; Z88.8 Allergy status to other drugs, medicaments and biological substances; Z90.49 Acquired absence of other specified parts of digestive tract

== ENCOUNTER 2020-09-30 11:47 | Emergency (ER) | payer MEDICAID, SELFPAY ==
[~2020-09-30] VITALS: Ht 154.9 cm; Wt 84.4 kg
[2020-09-30 11:59] VITALS: Ht 154.9 cm; Wt 84.4 kg
[2020-09-30 12:30] LABS: BASOPHIL % 0.4 % (0.2-1.3); PLATELET COUNT 368 x10^3mcL (179-408); RED CELL DISTRIBUTION WIDTH 13.3 % (12.3-17.7)
[2020-09-30 12:49] LABS: CALCIUM 9.2 mg/dL (8.5-10.1); CARBON DIOXIDE 29.8 mmol/L (21-32); CHLORIDE SERUM 102 mmol/L (98-107); CREATININE SERUM 0.7 mg/dL (0.6-1.0); GFR1 > 60 mL/min; GLUCOSE SERUM 125 mg/dL (74-106); POTASSIUM SERUM 3.4 mmol/L (3.5-5.1); SODIUM SERUM 140 mmol/L (136-145)
[2020-09-30 12:57] LABS: ALBUMIN 3.8 g/dL (3.4-5.0); ALKALINE PHOSPHATASE 66 U/L (46-116); ALT/SGPT 22 U/L (14-59); AST/SGOT 21 U/L (15-37); BILIRUBIN TOTAL 0.3 mg/dL (0.20-1.00); LIPASE 74 IU/L (73-393); TOTAL PROTEIN, SERUM 7.7 g/dL (6.4-8.2)
[2020-09-30] MEDS ORDERED: DICYCLOMINE10 M1 PO (15:24)
[2020-09-30] MEDS ORDERED: ONDANSETRON4 M3 PO (15:24)
[2020-09-30] MEDS ORDERED: MAALOX MAXIMUM355 ML PO (15:36)
[2020-09-30] MEDS ORDERED: CYCLOBENZAPRINE5 MG PO (15:49)
[2020-09-30] MEDS ORDERED: VOLTAREN100 GM TOP (15:49)
[2020-09-30 16:19] VITALS: BP 136/73
== END 2020-09-30 16:29 | disposition home or self-care (01) ==
LOC: ED 11:47
PROVIDERS: Student in an Organized Health Care Education/Training Program
DX: K58.0 Irritable bowel syndrome with diarrhea (principal); S39.012A Strain of muscle, fascia and tendon of lower back, initial encounter; R11.2 Nausea with vomiting, unspecified; J45.909 Unspecified asthma, uncomplicated; K21.9 Gastro-esophageal reflux disease without esophagitis; Z90.710 Acquired absence of both cervix and uterus; Z90.49 Acquired absence of other specified parts of digestive tract; Z88.0 Allergy status to penicillin; Z88.1 Allergy status to other antibiotic agents; X58.XXXA Exposure to other specified factors, initial encounter; Y93.89 Activity, other specified; Y92.89 Other specified places as the place of occurrence of the external cause; Y99.8 Other external cause status
CPT/HCPCS: J0500; J1885; J2060; J2405; J7030; Q9967